=== PATIENT | male | born 1975 | race Two or more races ===

== ENCOUNTER 2017-01-31 09:12 | Emergency (ER) | payer OTHER ==
[2017-01-31 09:27] VITALS: TEMP 98.3; BMI 29.1
[2017-01-31] MEDS ORDERED: ASPIRIN 81 MG CHEWABLE TABLETS ONE (09:30)
--- NOTE | 2017-01-31 09:44 | PDOC ---
History of Present Illness - General History Source: Patient Exam Limitations: No Limitations <Damion Garcia - Last Filed: 01/31/17 10:21> <Maegan Tinoco - Last Filed: 01/31/17 13:52> <Odessa York - Last Filed: 01/31/17 14:04> - General Chief Complaint: Chest Pain Stated Complaint: CHEST PAIN Time Seen by Provider: 01/31/17 09:42 - History of Present Illness Initial Comments: 01/31/17 10:07 Patient is a 41 yo male with a past significant history of HTN, chest pain who presents to the ED with complaints of acute onset chest pain to left side that lasted for two minutes. He reports being given Nitroglycerin and 4 baby aspirin by EMS. Patient states pain was resolved prior to Nitroglycerin ingestion. Patient reports no radiation of pain. He reports past history of pain secondary to exercise in 2013. Patient has had a recent negative stress test Denies calf pain, numbness or weakness. No Hx of edema. No hx of Blood clot. PMD : Dr Do No crna (Damion Garcia) 01/31/17 09:49 PCP: Dr. Justice Do, [place], [place] [phone] (Odessa York) Past History <Damion Garcia - Last Filed: 01/31/17 10:21> - Past Medical History HTN: Yes Psychiatric Problems: Yes (DEPRESSION) - Psycho/Social/Smoking Cessation Hx Suicidal Ideation: No Smoking History: Current every day smoker Number of Cigarettes Smoked Daily: 5 Information on smoking cessation initiated: No <Maegan Tinoco - Last Filed: 01/31/17 13:52> <Odessa York - Last Filed: 01/31/17 14:04> - Past Medical History Allergies/Adverse Reactions: Allergies Allergy/AdvReac Type Severity Reaction Status Date / Time No Known Allergies Allergy Verified 01/31/17 09:27 Review of Systems - Review of Systems Able to Perform ROS?: Yes <Damion Garcia - Last Filed: 01/31/17 10:21> - Review of Systems Respiratory: No: Orthopnea, Shortness of Breath Cardiac (ROS): Yes: Chest Pain, Lightheadedness. No: Edema, Irregular Heart Rate All Other Systems: Reviewed and Negative <Maegan Tinoco - Last Filed: 01/31/17 13:52> <Odessa York - Last Filed: 01/31/17 14:04> - Review of Systems Comments:: 01/31/17 10:21 GENERAL/CONSTITUTIONAL: No fever or chills. No weakness. HEAD, EYES, EARS, NOSE AND THROAT: No change in vision. No ear pain or discharge. No sore throat. GASTROINTESTINAL: No nausea, vomiting, diarrhea or constipation. GENITOURINARY: No dysuria, frequency, or change in urination. CARDIOVASCULAR: + Chest pain No shortness of breath. RESPIRATORY: No cough, wheezing, or hemoptysis. MUSCULOSKELETAL: No joint or muscle swelling or pain. No neck or back pain. SKIN: No rash NEUROLOGIC: No headache, vertigo, loss of consciousness, or change in strength/ sensation. ENDOCRINE: No increased thirst. No abnormal weight change. HEMATOLOGIC/LYMPHATIC: No anemia, easy bleeding, or history of blood clots. ALLERGIC/IMMUNOLOGIC: No hives or skin allergy. (Damion Garcia) *Physical Exam <Damion Garcia - Last Filed: 01/31/17 10:21> <Maegan Tinoco - Last Filed: 01/31/17 13:52> <Odessa York - Last Filed: 01/31/17 14:04> - Vital Signs Last Vital Signs Temp Pulse Resp BP Pulse Ox 98.3 F 65 16 151/102 99 01/31/17 09:21 01/31/17 12:29 01/31/17 12:29 01/31/17 12:29 01/31/17 12:29 - Physical Exam Comments: 01/31/17 10:15 GENERAL: Awake, alert, and fully oriented, in no acute distress HEAD: No signs of trauma EYES: PERRLA, EOMI, sclera anicteric, conjunctiva clear ENT: Auricles normal inspection, nares patent, Moist mucosa NECK: Normal ROM, supple, no lymphadenopathy, JVD, or masses LUNGS: Breath sounds equal, clear to auscultation bilaterally. No wheezes, and no crackles HEART: Regular rate and rhythm, normal S1 and S2, no murmurs, rubs or gallops ABDOMEN: Soft, nontender, normoactive bowel sounds. No guarding, no rebound. No masses EXTREMITIES:Pulses symmetrical Normal range of motion, no edema. No clubbing or cyanosis. No cords, erythema , or tenderness NEUROLOGICAL: Normal speech Neuro AAO x3. SKIN: Warm, Dry, normal turgor, no rashes or lesions noted. (Damion Garcia) Heart Score/ECG Review <Damion Garcia - Last Filed: 01/31/17 10:21> - History History: Moderately suspicious - Electrocardiogram EKG: Non specific repolarization disturbance - Age Age: </= 45 - Risk Factors Risk Factors Heart Score: Yes Hx Hypertension, No Hx Diabetes, No Smoking History, No Positive family hx of cardiac disease Based on the list above the patient has:: 1-2 risk factors - Troponin Troponin: </= normal limit - Score Heart Score - Total: 3 #1 General ECG Interpretation: Sinus Rhythm, Normal Rate (68 bpm), Normal Intervals , No acute ischemic changes (TWI I, AVL, LVH., left axis) Compared to previous ECG there are: No significant change (obtained ekg from pcp 04/13/16, no change) <Maegan Tinoco - Last Filed: 01/31/17 13:52> <Odessa York - Last Filed: 01/31/17 14:04> #1 01/31/17 09:44 TWI I, AVL, biphasic V5 and V6. LBV, left axis (Maegan Tinoco) ED Treatment Course - LABORATORY CBC & Chemistry Diagram: 01/31/17 09:30 01/31/17 09:30 <Damion Garcia - Last Filed: 01/31/17 10:21> - LABORATORY CBC & Chemistry Diagram: 01/31/17 10:57 01/31/17 11:00 <Maegan Tinoco - Last Filed: 01/31/17 13:52> - LABORATORY CBC & Chemistry Diagram: 01/31/17 10:57 01/31/17 11:00 <Odessa York - Last Filed: 01/31/17 14:04> - ADDITIONAL ORDERS Additional order review: Laboratory Results 01/31/17 01/31/17 01/31/17 12:40 11:00 09:30 Sodium 141 Cancelled Potassium 3.7 Cancelled Chloride 103 Cancelled Carbon Dioxide 30 Cancelled Anion Gap 8 Cancelled BUN 11 Cancelled Creatinine 1.4 H Cancelled Creat Clearance w eGFR 55.31 Cancelled Random Glucose 93 Cancelled Calcium 9.0 Cancelled Total Bilirubin 1.1 H Cancelled AST 19 Cancelled ALT 27 Cancelled Alkaline Phosphatase 50 Cancelled Creatine Kinase 231 Cancelled Creatine Kinase Index 2.4 CK-MB (CK-2) 5.585 H Troponin I 0.12 H Cancelled Total Protein 6.9 Cancelled Albumin 4.0 Cancelled 01/31/17 01/31/17 10:57 09:30 RBC 4.68 Cancelled MCV 88.2 Cancelled MCHC 33.0 Cancelled RDW 14.3 Cancelled MPV 8.8 Cancelled Neutrophils % 52.1 Cancelled Lymphocytes % 33.0 Cancelled Monocytes % 11.0 H Cancelled Eosinophils % 2.8 Cancelled Basophils % 1.1 Cancelled - RADIOLOGY Radiology Studies Ordered: 01/31/17 14:03 Chest x-ray, read and reviewed by Dr. Smith (Odessa York) Radiograph Interpretation: 01/31/17 14:04 Impression: Cardiomegaly. No evidence of active pulmonary disease. (Odessa York) Medical Decision Making <Damion Garcia - Last Filed: 01/31/17 10:21> <Maegan Tinoco - Last Filed: 01/31/17 13:52> <Odessa York - Last Filed: 01/31/17 14:04> - Medical Decision Making 01/31/17 12:21 pt bp improved in ED, no longer having chest pain. cxr normal ekg unchanged from prior faxed over from pcp dr do, on amlodipine 10, hctz/ linsinopril /. will see pt in office this week and arrange for outpt stress test. 01/31/17 13:47 pt troponin mildly positive, pt refusing to stay in hospital. concerned for parents at home and under stress as just broke up with girlfriend. offered social work to help sort out care for pt parents while in hosp. stil refused. told to take asa daily. and return immediately for recurrent pain. states unsure if took medications yesterday due to stress of relationship turmoil. dr do called to update regarding pt leaving [facility]. (Maegan Tinoco) *DC/Admit/Observation/Transfer <Damion Garcia - Last Filed: 01/31/17 10:21> - Discharge Dispostion Admit: No <Maegan Tinoco - Last Filed: 01/31/17 13:52> <Odessa York - Last Filed: 01/31/17 14:04> Diagnosis at time of Disposition: NSTEMI (non-ST elevated myocardial infarction) - Referrals Referrals: Justice Holt MD [Primary Care Provider] - Justice Do MD [Non Staff, Medical] - Malik Sam MD [Staff Physician] - - Patient Instructions Printed Discharge Instructions: Quitting Smoking After a Heart Attack, Heart Attack (Alternative Therapy) Additional Instructions: understand you are leaving against medical advice. you should return immediately for any further chest pain. you need to see your doctor as soon as possible, please call Jesus to schedule. you should also see a crna call dr sam ( see referral for phone info) if you do not already have one. take aspirin 325mg daily until your followup. you should continue to take your blood pressure medications Amlodipine 10 mg daily Hydrochlorothiazide/ lisinopril 25/20mg return for any problems or concerns. - Attestations Scribe Attestion: 01/31/17 10:15 Documentation prepared by Damion Garcia, acting as medical surgical tech for Maegan Tinoco MD. (Damion Garcia) 01/31/17 09:49 Documentation prepared by Odessa York, acting as medical surgical tech for Maegan Tinoco MD. (Odessa York)
--- NOTE | 2017-01-31 11:33 | EKG ---
Test Reason : Blood Pressure : / mmHG Vent. Rate : 068 BPM Atrial Rate : 068 BPM P-R Int : 176 ms QRS Dur : 102 ms QT Int : 472 ms P-R-T Axes : 018 -33 140 degrees QTc Int : 501 ms NORMAL SINUS RHYTHM POSSIBLE LEFT ATRIAL ENLARGEMENT LEFT AXIS DEVIATION LEFT VENTRICULAR HYPERTROPHY WITH REPOLARIZATION ABNORMALITY PROLONGED QT ABNORMAL ECG NO PREVIOUS ECGS AVAILABLE REPEAT EKG IF CLINICALLY INDICATED Confirmed by MARI CEVALLOS MD ([id number]) on 01/31/2017 11:32:47 AM Referred By: Confirmed By:MARI CEVALLOS MD
[2017-01-31 11:34] LABS: ALK PHOS 50 U/L (45-117); ANION GAP 8 (8-16); BILIRUBIN,TOTAL 1.1 mg/dL (0.2-1.0); CO2 30 mmol/L (21-32); CREATININE 1.4 mg/dL (0.7-1.3); GLUCOSE,RANDOM 93 mg/dL (74-106); SGOT/AST 19 U/L (15-37); SGPT/ALT 27 U/L (12-78); TOT PROT 6.9 g/dl (6.4-8.2)
[2017-01-31 11:50] LABS: BASOPHIL 1.1 % (0-2.0); EOSINOPHIL 2.8 % (0-4.5); MCH 29.1 pg (25.7-33.7); MEAN CELL VOLUME 88.2 fl (80-96); MEAN PLT VOLUME 8.8 fl (7.5-11.1); NEUTROPHILS 52.1 % (42.8-82.8); PLATELET COUNT 248 K/MM3 (134-434); RDW 14.3 % (11.9-15.9); WHITE BLOOD COUNT 4.2 K/mm3 (4.0-10.0)
[2017-01-31 12:30] VITALS: BP 151/102; PULSE 65
[2017-01-31 13:08] LABS: TROPONIN I 0.12 ng/ml (0.00-0.05)
== END 2017-01-31 14:07 | disposition home or self-care (01) ==
LOC: JER 09:12
DX: I21.4 Non-ST elevation (NSTEMI) myocardial infarction (principal); I10 Essential (primary) hypertension; F17.210 Nicotine dependence, cigarettes, uncomplicated
CPT/HCPCS: 36415; 71020-TC; 80053; 82553; 84484; 85025; 93005; 93010; 99283-25